=== PATIENT | female | born 1960 | race Caucasian/White ===

== ENCOUNTER 2021-08-16 18:00 | Emergency (ER) | payer OTHER ==
[2021-08-16 18:32] VITALS: BP 129/80; PULSE 78; TEMP 98.8; BMI 19.9
[2021-08-16] MEDS ORDERED: AZITHROMYCIN 250 MG TABLET PO ONE (18:47)
[2021-08-16] MEDS ORDERED: AZITHROMYCIN 250 MG TABLET ONE (19:04)
[2021-08-17 19:06] LABS: SARS-CoV-2 NAA Not Detected (Not Detected)
== END 2021-08-16 19:11 | disposition home or self-care (01) ==
LOC: FER 18:00
DX: R05.9 Cough, unspecified (principal)
CPT/HCPCS: 71045-TC-FY; 87804; 99284-25; C9803; U0003; U0005

== ENCOUNTER 2023-03-02 05:32 | Day surgery (SDC) | payer OTHER ==
[2023-03-01 13:06] VITALS: BMI 19.9
[2023-03-02 10:41] VITALS: TEMP 98
[2023-03-02 11:18] VITALS: BP 116/63; PULSE 79; RESP 17
== END 2023-03-02 11:30 | disposition home or self-care (01) ==
LOC: JASU-ENDO 05:32
PROVIDERS: ATTEND Student in an Organized Health Care Education/Training Program
PROC: 0DBM8ZX Excision of Descending Colon, Via Natural or Artificial Opening Endoscopic, Diagnostic (ICD-10-PCS; principal; 2023-03-02 10:00)
DX: K63.5 Polyp of colon (principal); K59.89 Other specified functional intestinal disorders
CPT/HCPCS: 88305-TC